=== PATIENT | male | born 1955 | race Two or more races ===

== ENCOUNTER 2023-03-01 09:16 | Outpatient (AMB) | payer MEDICARE, OTHER, SELFPAY ==
[2023-03-01 09:20] VITALS: BP 110/70; PULSE 71; RESP 12; TEMP 36.4; O2SAT 97; BMI 28.6
--- NOTE | 2023-03-01 09:20 | MHC.PC.OV ---
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 Accompanied by: Self / Same As Patient Allergies No Known Allergies Allergy (Verified 03/01/23 09:53) Medication List - Last Reconciled 03/01/23 by Chandan Vasquez CNP No Known Home Meds Tobacco use date assessed: 03/01/23 Fall risk assessment: No Falls in past year Last assessed Fall Risk: 03/01/23 Dental Screening Dental Screen Date: 03/01/23 Did you have a dental visit in the last 12 months?: Yes Did you have a dental problem in the last 6 months where you did not have access to dental care?: No Was dental information given to patient?: Patient has dentist HPI HPI Comments History of Present Illness Details 67-year-old male presents to [facility] care. He notes that he was last evaluated by his former PCP and had routine blood work done 4 years ago. No significant PMH. Not on prescription medication. No acute symptoms at this time. He notes that he has never received the shingix or PNA vaccines and does not intent to be vaccinated. He states that his last colonoscopy was 4 years ago by his former PCP: normal [facility] Medical History (Updated 03/01/23 @ 10:13 by Chandan Vasquez CNP) History of torn meniscus of left knee Surgical History (Updated 03/01/23 @ 09:34 by Malathi Bird MA) H/O lateral meniscus repair of left knee History of appendectomy Family History (Updated 03/01/23 @ 09:31 by Malathi Bird MA) Mother Breast cancer Social History Housing: Other (RV) Patient Tobacco Use Status: Never used Tobacco e-Cigarette/Vaping Use: Never Used service: No Current occupational status: retired Cognitive needs: No Hearing needs: No Vision needs: No Questionnaire PHQ-9 Over the last 2 weeks, how often have you been bothered by any of the following problems? 1. Little interest or pleasure in doing things: not at all 2. Feeling down, depressed, or hopeless: not at all 3. Trouble falling or staying asleep, or sleeping too much: not at all 4. Feeling tired or having little energy: not at all 5. Poor appetite or overeating: not at all 6. Feeling bad about yourself - or that you are a failure or have let yourself or your family down: not at all 7. Trouble concentrating on things, such as reading the newspaper or watching television: not at all 8. Moving or speaking so slowly that other people could have noticed. Or the opposite - being so fidgety or restless that you have been moving around a lot more than usual: not at all 9. Thoughts that you would be better off or of hurting yourself in some way: not at all Total score: 0 Depression Screening Interpretation: Negative Depression Screening Done: Yes Source: Developed by Drs. Warren Sullivan, Linda Hong, Wilman Rosales and colleagues, with an educational bautista from [employer]. Thrive Questionnaire Date Thrive assessed: 03/01/23 I am a: Patient What is your living situation today?: I have a steady place to live Within the past 12 months, did the food you bought not last and you didn't have the money to get more?: Never true Within the past 12 months, did you worry whether your food would run out before you got money to buy more?: Never true Do you have trouble paying for medicines?: No Do you have trouble getting transportation to medical appointments?: No Do you have trouble paying your heating and electricity bill?: No Do you have trouble taking care of your child, family member or friend?: No Do you have trouble with day-to-day activities such as bathing, preparing meals, shopping, managing finances, etc.?: No Are you currently unemployed and looking for a job?: No Are you interested in more education?: No Please select the resources that you would like help with: None Currently or been in a relationship where the following occur: no concerns reported AUDIT C Alcohol Use Questionnaire (AUDIT-C) 1. How often do you have a drink containing alcohol?: Monthly or less 2. How many drinks containing alcohol do you have on a typical day when you are drinking?: 1 or 2 3. How often do you have six or more drinks on one occasion?: Never Total Score: 1 CHRISTIAN-7 AMB Questionnaire CHRISTIAN-7 Date CHRISTIAN - 7 assessed: 03/01/23 Feeling nervous, anxious, or on edge: 0 = Not at all Not being able to stop or control worryin = Not at all Worrying too much about different things: 0 = Not at all Trouble relaxin = Not at all Being so restless that it is hard to sit still: 1 = Several days Becoming easily annoyed or irritable: 0 = Not at all Feeling afraid as if something awful might happen: 0 = Not at all Total CHRISTIAN-7 score (0-4 normal; 5-9 mild; 10-14 moderate; 15-21 severe): 1 Source: Developed by Drs. Warren Sullivan, Linda Hong, Wilman Rosales and colleagues, with an educational bautista from [employer]. Review of Systems Const Details: Denies chills, Denies fatigue, Denies fever(s), Denies headache(s) and Denies weakness HEENT Denies change in vision, Denies dizziness, Denies headache(s), Denies hearing loss, Denies nasal congestion, Denies sinus pain, Denies sinus pressure and Denies sore throat Card Denies chest pain, Denies lightheadedness, Denies dyspnea and Denies other (palpitations) Resp Denies cough, Denies dyspnea and Denies wheezing GI Denies abdominal pain, Denies melena, Denies hematochezia, Denies change in bowel habits, Denies dyspepsia and Denies nausea Denies hematuria and Denies dysuria Musc Denies abnormal gait, Denies myalgias, Denies arthralgias, Denies numbness and Denies tingling Skin/Breast Denies rash, Denies unusual bruising and Denies wounds Neuro Denies abnormal gait, Denies dizziness, Denies headache(s), Denies memory loss, Denies numbness, Denies Sensory deficit (Neuro), Denies tingling and Denies weakness Psych Denies anxiety, Denies depression and Denies memory loss Endo Denies cold intolerance, Denies fatigue, Denies heat intolerance, Denies polydipsia and Denies polyuria Rajeev/Lymph Denies easy bleeding and Denies easy bruising Aller/Immun Denies wheezing Physical exam (Primary Care) Vital Signs: Last Vital Signs Temp 97.6 F 03/01/23 09:20 Pulse 71 03/01/23 09:20 Resp 12 03/01/23 09:20 BP 110/70 03/01/23 09:20 Pulse Ox 97 03/01/23 09:20 Oxygen Delivery Method Room Air 03/01/23 09:20 BMI result Body Mass Index 28.6 Tobacco/Smoking Status: Tobacco use Status Tobacco use date assessed 03/01/23 03/01/23 09:35 Patient Tobacco Use Status Never used Tobacco 03/01/23 09:35 e-Cigarette/Vaping Use Never Used 03/01/23 09:35 PHQ-9: PHQ-9 Score PHQ-9: Total score 0 03/01/23 09:35 Depression Screening Interpretation: Negative Thrive Assessment: Date of Thrive Assessment Date Thrive assessed 03/01/23 03/01/23 09:35 Currently or been in a relationship where the following occur: no concerns reported Const Other: General: no acute distress, well developed, alert and awake Nutritional Appearance: well nourished Orientation/consciousness: patient oriented x3 HENMT Head: Yes normocephalic and Yes atraumatic Ears: hearing grossly normal bilaterally and TM's normal bilaterally General nose exam: Normal external nose present and Normal nares present Mouth: Normal oral and palatal mucosa present and moist mucous membranes Teeth and gingiva: dentition normal Throat: Yes oropharynx normal Eyes Pupils: Equal, round and reactive pupils present and Pupil accommodation reflex normal EOM: EOMs intact bilaterally Neck Neck: Yes normal visual inspection, Yes no lymphadenopathy and Yes trachea midline Thyroid: Thyroid normal Carotids: no bruits Lymphatic: no lymphadenopathy noted Chest Chest palpation & inspection: normal inspection of the chest Resp Effort & Inspection: normal respiratory effort Auscultation: clear to auscultation bilaterally Cardio Rate: regular rate Rhythm: regular rhythm Heart sounds: S1 normal heart sound present, S2 normal heart sound present, no gallops, no murmurs and no rubs Bruits: no abdominal aortic bruits and no carotid bruits GI Palpation (GI): No Abdominal aortic bruit present, Soft to palpation, nontender, No hepatosplenomegaly present and No Rebound tenderness present Auscultation: normal bowel sounds General: Yes no CVA tenderness Back/Spine/Pelvis Back: no CVA tenderness Cervical Spine: cervical ROM normal and No Cervical spine tenderness Thoracic/Lumbar Spine: thoraco-lumbar ROM normal, No pain with thoraco-lumbar ROM, No thoracic spinal tenderness and No lumbar spinal tenderness Skin General: warm and dry. Normal skin color. Normal skin turgor Lesions: no lesions Rashes: no rashes Trauma: no lacerations or abrasions Wounds: no wounds Nails: normal Neuro General: patient oriented x3, gait normal and CN's II-XI intact bilaterally Cranial nerves: Yes Equal, round and reactive pupils present Cognition (Neuro): normal cognition Gait exam (Neuro): Normal gait present Motor exam (neuro): 5/5 motor strength present throughout Sensory Exam: No Sensory deficit (Neuro) Deep tendon reflexes (DTR's): Right patellar reflex intensity grade: 2+ and Left patellar reflex intensity grade: 2+ Extrem General: Yes normal to inspection, No edema and No calf tenderness Psych Appearance: grossly normal Affect: normal affect Attitude: cooperative Thought process: Normal thought process present Assessment and Plan Assessment & Plan (1) Normal physical examination, routine: Code(s): Z00.00 - Encounter for general adult medical examination without abnormal findings Plan: No significant physical restrictions or limitations noted Routine labs ordered to complement the physical exam Advised to sign consent to obtain record from his former PCP Encouraged to get fasting blood work done before his next visit Schedule a telehealth visit for labs review Return with symptoms or concerns Verbalized understanding and agreed with treatment plan. (2) Vaccine counseling: Code(s): Z71.85 - Encounter for immunization safety counseling Plan: He notes that he has never received the shingix or PNA vaccines and does not intent to be vaccinated. Instructed on the importance of the Shingrix and pneumonia vaccines and encouraged to get vaccinated. (3) Laboratory tests ordered as part of a complete physical exam (CPE): Code(s): Z00.00 - Encounter for general adult medical examination without abnormal findings Plan: Fasting labs ordered as part of a complete physical exam. Advised to fast for at least 10 hours before getting labs drawn. May drink water Verbalized understanding and agreed with treatment plan. Orders: Orders Complete Blood Count Auto Diff Today Z00.00 - Encounter for general adult medical examination without abnormal findings TSH reflex Free T4 Today Z00.00 - Encounter for general adult medical examination without abnormal findings UA CC w/rflx Micro + Cult Today Z00.00 - Encounter for general adult medical examination without abnormal findings PSA, Ultra Sensitive Today Z00.00 - Encounter for general adult medical examination without abnormal findings Comprehensive [place]. Panel Fast Today Z00.00 - Encounter for general adult medical examination without abnormal findings Lipid Panel Today Z00.00 - Encounter for general adult medical examination without abnormal findings Coding Level of Care Code New Pt Prev Care >65yr (41648) Diagnoses Normal physical examination, routine Z00.00 Vaccine counseling Z71.85 Laboratory tests ordered as part of a complete physical exam (CPE) Z00.00
== END 2023-03-01 10:14 | disposition home or self-care (01) ==
PROVIDERS: PCP Nurse Practitioner Family; Visit Provider Nurse Practitioner Family
DX: Z00.00 Encounter for general adult medical examination without abnormal findings (principal); Z71.85 Encounter for immunization safety counseling
CPT/HCPCS: 99387

== ENCOUNTER 2023-03-07 09:06 | Outpatient (REF) | payer MEDICARE, OTHER, SELFPAY ==
[2023-03-07 11:13] LABS: MANUAL DIFF FLAG NO
[2023-03-07 11:21] LABS: Appearance Urine Clear; Color Urine Yellow; Glucose Urine UA Negative (Negative); Leukocyte Esterase Urine Negative (Negative); Nitrite Urine Negative (Negative); PH 6.5 (5.0-9.0); Specific Gravity - Urine <= 1.005 (1.005-1.025); UMIC TRIGGER UACC YES; Urine Blood Negative (Negative); Urine Ketones Negative (Negative); Urine Protein 30 (1+) mg/dL (Neg-Trace)
[2023-03-07 11:34] LABS: Bacteria Urine None Seen (None Seen); Hyaline Casts Urine 0-2 /LPF (0-2); RBC Urine 0-2 /HPF (0-2); Squamous Epithelial Cell Urine 0-2 /HPF (0-2); WBC Urine 0-5 /HPF (0-5)
[2023-03-07 11:40] LABS: Basophils Percent Auto 0.6 % (0-2); Eosinophils Absolute Auto 0.1 X10*3/uL (0.0-0.4); Eosinophils Percent Auto 1.1 % (0-4); Hematocrit 42.6 % (42.0-52.0); Imm Gran Abs Auto 0.02 X10*3/uL (0.00-0.03); Imm Gran Pct Auto 0.3 % (0.0-0.4); Lymphocytes Absolute Auto 2.1 X10*3/uL (1.2-4.9); Lymphocytes Percent Auto 28.9 % (20-40); Mean Corpuscular HGB Conc 32.9 g/dl (31.0-36.0); Mean Corpuscular Hemoglobin 29.6 pg (27.0-33.0); Mean Corpuscular Volume 90.1 fL (80.0-98.0); Mean Platelet Volume 9.7 fL (9.4-12.4); Monocytes Absolute Auto 0.6 X10*3/uL (0.1-1.2); Monocytes Percent Auto 7.8 % (2-11); Neutrophils Absolute Auto 4.4 x10*3/uL (2.0-8.3); Neutrophils Percent Auto 61.3 % (45-73); Platelet Count 238 X10*3/uL (160-400); Red Blood Count 4.73 X10*6/uL (4.60-5.80); Red Cell Distribution Width 12.6 % (11.0-16.0); White Blood Count 7.2 X10*3/uL (4.8-10.8)
[2023-03-07 13:10] LABS: Alanine Aminotransferase 15 U/L (0-40); Albumin Level 4.1 g/dL (3.5-5.0); Alkaline Phosphatase 50 U/L (39-117); Anion Gap 17 (12-20); Aspartate Amino Transferase 19 U/L (5-37); Bilirubin Total 0.5 mg/dL (0.0-1.0); Blood Urea Nitrogen 13 mg/dL (9-16); Calcium 9.3 mg/dL (8.4-10.2); Carbon Dioxide 22 mmol/L (22-29); Chloride 105 mmol/L (96-108); Cholesterol 207 mg/dL (<200); Estimated Glomerular Filt Rate > 60; Glucose Fasting 91 mg/dL (60-99); HDL Cholesterol 49 mg/dL (>40); LDL Cholesterol Calculated 139 mg/dL (<100); Potassium 4.5 mmol/L (3.3-5.1); Sodium 139 mmol/L (135-145); TSH reflex Free T4 1.13 uIU/mL (0.32-4.0); Total Protein 7.1 g/dL (6.5-8.0); Triglycerides 98 mg/dL (<150)
[2023-03-11 21:37] LABS: PSA, Ultra Sensitive 0.38 ng/mL
== END 2023-03-07 09:07 | disposition home or self-care (01) ==
LOC: HO.WFDLDS 09:06
PROVIDERS: Visit Provider Nurse Practitioner Family
DX: Z00.00 Encounter for general adult medical examination without abnormal findings (principal); Z12.5 Encounter for screening for malignant neoplasm of prostate
CPT/HCPCS: 36415; 80053; 80061; 81001; 84153; 84443; 85025

== ENCOUNTER 2023-03-16 17:07 | Outpatient (AMB) | payer MEDICARE, OTHER, SELFPAY ==
--- NOTE | 2023-03-16 15:21 | A.OFFPC_ITS ---
Intake Visit Reasons: labs review [employer] Required: No Allergies No Known Allergies Allergy (Verified 03/16/23 15:23) Tobacco use date assessed: 03/01/23 HPI HPI Comments History of Present Illness Details This is a telephonic telehealth visit for review of recent blood work. Patient established care 2 weeks ago and had a complete physical exam and routine labs ordered. He offers no complaints and denies acute symptoms. [facility] Medical History (Updated 03/16/23 @ 15:34 by Chandan Vasquez CNP) History of torn meniscus of left knee Surgical History (Updated 03/01/23 @ 09:34 by Malathi Bird MA) H/O lateral meniscus repair of left knee History of appendectomy Family History (Updated 03/01/23 @ 09:31 by Malathi Bird MA) Mother Breast cancer Social History Housing: Other (RV) Patient Tobacco Use Status: Never used Tobacco e-Cigarette/Vaping Use: Never Used service: No Current occupational status: retired Cognitive needs: No Hearing needs: No Vision needs: No Questionnaire Thrive Questionnaire Date Thrive assessed: 03/01/23 CHRISTIAN-7 AMB Questionnaire CHRISTIAN-7 Date CHRISTIAN - 7 assessed: 03/01/23 Source: Developed by Drs. Warren Sullivan, Linda Hong, Wilman Rosales and colleagues, with an educational bautista from [employer]. Review of Systems Const Details: Const Denies chills, Denies fatigue, Denies fever(s), Denies headache(s) and Denies weakness ENT Denies dizziness and Denies headache(s) Card Denies chest pain, Denies lightheadedness, Denies dyspnea and Denies other (Palpitations) Resp Denies cough, Denies dyspnea, Denies wheezing and Denies other ( shortness of breath) GI Denies abdominal pain, Denies melena, Denies hematochezia, Denies change in bowel habits, Denies dyspepsia and Denies nausea Denies hematuria and Denies dysuria Musc Denies abnormal gait, Denies myalgias, Denies arthralgias, Denies numbness and Denies tingling Skin/Breast Denies rash, Denies unusual bruising and Denies wounds Neuro Denies abnormal gait, Denies dizziness, Denies headache(s), Denies memory loss, Denies numbness, Denies Sensory deficit (Neuro), Denies tingling and Denies weakness Psych Denies anxiety, Denies depression, Denies memory loss Endo Denies cold intolerance, Denies fatigue, Denies heat intolerance, Denies polydipsia and Denies polyuria Aller/Immun Denies wheezing Physical exam (Primary Care) Tobacco/Smoking Status: Tobacco use Status Tobacco use date assessed 03/01/23 03/16/23 15:22 Patient Tobacco Use Status Never used Tobacco 03/16/23 15:22 e-Cigarette/Vaping Use Never Used 03/16/23 15:22 Thrive Assessment: Date of Thrive Assessment Date Thrive assessed 03/01/23 03/16/23 15:22 Const Other: Telemedicine. No physical exam Telehealth Telehealth Location of provider rendering services: practice address Location of patient: address on file Patient Identification confirmed using: Name, : Yes Telehealth method: voice only Patient verbally consented to treatment: Yes Patient verbally consented to billing insurance company: Yes Patient informed of any privacy concerns related to visit: Yes Assessment and Plan Assessment & Plan (1) Hypercholesterolemia: Code(s): E78.00 - Pure hypercholesterolemia, unspecified Plan: Recent urinalysis and lab results were unremarkable except for slightly elevated total cholesterol and LDL levels, 207 and 139 respectively His 10 year risk of ASCVD is 11% No significant past medical history Advised to limit foods high in saturated fat and avoid foods high in trans fat Routine exercise encouraged Advised to schedule his next physical exam for next February. Fast for 10-12 smita rs and get routine blood work done to 3 days before his next visit Return sooner with symptoms or concerns Verbalized understanding and agreed with treatment plan. Orders: Orders Complete Blood Count Auto Diff Today Z00.00 - Encounter for general adult medical examination without abnormal findings Comprehensive [place]. Panel Fast Today Z00.00 - Encounter for general adult medical examination without abnormal findings Lipid Panel Today Z00.00 - Encounter for general adult medical examination without abnormal findings TSH reflex Free T4 Today Z00.00 - Encounter for general adult medical examination without abnormal findings Coding Level of Care Code Tele Est Pt Level 2 (42078) Diagnoses Hypercholesterolemia E78.00
== END 2023-03-16 17:10 | disposition home or self-care (01) ==
PROVIDERS: PCP Nurse Practitioner Family; Visit Provider Nurse Practitioner Family
DX: E78.00 Pure hypercholesterolemia, unspecified (principal)
CPT/HCPCS: 99442

== ENCOUNTER 2023-03-31 12:56 | Outpatient (AMB) | payer MEDICARE, OTHER, SELFPAY ==
--- NOTE | 2023-03-31 13:02 | A.OFFPC_ITS ---
Vital Signs 03/31/23 13:26 Height 5 ft 9 in Weight 187 lb BMI 27.6 BP 126/60 Blood Pressure Location Rt brachial Position Sitting Respiration 12 Pulse 73 Pulse Source Pulse Oximeter Temp 98.9 F Temp Source Oral Pulse Oximetry (%) 96 Oxygen Delivery Method Room Air Intake Visit Reasons: tick bite Intake Note: Patient presents with a tick bite on the right side of his rib cage area. Patient reports he noticed it there this morning and his attempted to get the tick out, however there was concern of some of the tick remaining on the skin. Mass Spectroscopist Required: No Accompanied by: Self / Same As Patient Allergies No Known Allergies Allergy (Verified 03/31/23 13:28) Tobacco use date assessed: 03/01/23 HPI HPI Comments History of Present Illness Details 67-year-old male presents with complaint s of a tick bite to his right side. He notes that he noticed the tick imbedded in the skin this morning. His attempted to remove the tick but was only able to remove most of the body with some parts remaining still imbedded in his skin. He notes that he did not noticed the tick in his skin before this morning. No acute symptoms at this time. He states that he is traveling in with his to [place] and will return next August. [facility] Medical History (Updated 03/31/23 @ 13:32 by Chandan Vasquez CNP) History of torn meniscus of left knee Surgical History (Updated 03/01/23 @ 09:34 by Malathi Bird MA) H/O lateral meniscus repair of left knee History of appendectomy Family History (Updated 03/01/23 @ 09:31 by Malathi Bird MA) Mother Breast cancer Social History Housing: Other () Patient Tobacco Use Status: Never used Tobacco e-Cigarette/Vaping Use: Never Used service: No Current occupational status: retired Cognitive needs: No Hearing needs: No Vision needs: No Questionnaire Thrive Questionnaire Date Thrive assessed: 03/01/23 CHRISTIAN-7 AMB Questionnaire CHRISTIAN-7 Date CHRISTIAN - 7 assessed: 03/01/23 Source: Developed by Drs. Warren Sullivan, Linda Hong, Wilman Rosales and colleagues, with an educational bautista from [employer]. Review of Systems Const Details: Const Denies chills, Denies fatigue, Denies fever(s), Denies headache(s) and Denies weakness ENT Denies dizziness and Denies headache(s) Card Denies chest pain, Denies lightheadedness, Denies dyspnea and Denies other (Palpitations) Resp Denies cough, Denies dyspnea, Denies wheezing and Denies other ( shortness of breath) GI Denies abdominal pain, Denies melena, Denies hematochezia, Denies change in bowel habits, Denies dyspepsia and Denies nausea Denies hematuria and Denies dysuria Musc Denies abnormal gait, Denies myalgias, Denies arthralgias, Denies numbness and Denies tingling Skin/Breast Reports as per HPI Neuro Denies abnormal gait, Denies dizziness, Denies headache(s), Denies memory loss, Denies numbness, Denies Sensory deficit (Neuro), Denies tingling and Denies weakness Psych Denies anxiety, Denies depression, Denies memory loss Endo Denies cold intolerance, Denies fatigue, Denies heat intolerance, Denies polydipsia and Denies polyuria Aller/Immun Denies wheezing Physical exam (Primary Care) Tobacco/Smoking Status: Tobacco use Status Tobacco use date assessed 03/01/23 03/31/23 13:03 Patient Tobacco Use Status Never used Tobacco 03/31/23 13:03 e-Cigarette/Vaping Use Never Used 03/31/23 13:03 Thrive Assessment: Date of Thrive Assessment Date Thrive assessed 03/01/23 03/31/23 13:03 Const Other: General: no acute distress and well developed Nutritional Appearance: well nourished Orientation/consciousness: patient oriented x3 HENMT Head: Yes normocephalic and Yes atraumatic Eyes General: appearance normal, both eyes and all related structures Pupils: Equal, round and reactive pupils present EOM: EOMs intact bilaterally Resp Effort & Inspection: normal respiratory effort Auscultation: clear to auscultation bilaterally Cardio Rate: regular rate Rhythm: regular rhythm Heart sounds: S1 normal heart sound present, S2 normal heart sound present, no gallops, no murmurs and no rubs GI Palpation (GI): No Abdominal aortic bruit present, Soft to palpation, nontender, No hepatosplenomegaly present and No Rebound tenderness present Auscultation: normal bowel sounds General: Yes no CVA tenderness Back/Spine/Pelvis Back: no CVA tenderness Cervical Spine: cervical ROM normal and No Cervical spine tenderness Thoracic/Lumbar Spine: thoraco-lumbar ROM normal, No pain with thoraco-lumbar ROM, No thoracic spinal tenderness and No lumbar spinal tenderness Extrem General: Yes normal to inspection, No edema and No calf tenderness Skin General: warm and dry. Normal skin color. Normal skin turgor Lesions: Small, red, round, firm area noted to the skin on his right lower ribcage Rashes: no rashes Trauma: no lacerations or abrasions Wounds: no wounds Nails: normal Neuro General: patient oriented x3, gait normal and no focal neuro deficit Cranial nerves: Yes Equal, round and reactive pupils present Cognition (Neuro): normal cognition Gait exam (Neuro): Normal gait present Sensory Exam: No Sensory deficit (Neuro) Psych Appearance: grossly normal Affect: normal affect Attitude: cooperative Thought process: Normal thought process present Assessment and Plan Assessment & Plan (1) Tick bite: Code(s): W57.XXXA - Bitten or stung by nonvenomous insect and other nonvenomous arthropods, initial encounter Qualifiers: Encounter type: initial encounter Plan: Reports noticing a tick that was imbedded to his right side this morning. Most of the tick was removed by his . He notes that he did not noticed the tick on his skin before this morning. He denies acute symptoms. Small, red, round, firm area noted to the skin on his right lower ribcage. Small, tick-like appendage removal with tweezers, no other appendages or body parts noted. No drainage noted. Will treat prophylactically with doxycycline. Doxycycline ordered. Take as prescribed Advised to follow-up for further evaluation if he experiences acute symptoms He verbalized understanding and agreed with treatment plan. Medications: New doxycycline hyclate 200 mg (2 x 100 mg) PO ONCE 2 caps 0RF Coding Level of Care Code Est Pt Level 3 (82455) Diagnoses Tick bite W57.XXXA Encounter type: initial encounter
[2023-03-31 13:26] VITALS: BP 126/60; PULSE 73; RESP 12; TEMP 37.2; O2SAT 96; BMI 27.6
== END 2023-03-31 13:26 | disposition home or self-care (01) ==
PROVIDERS: PCP Nurse Practitioner Family; Visit Provider Nurse Practitioner Family
DX: T63.481A Toxic effect of venom of other arthropod, accidental (unintentional), initial encounter (principal)
CPT/HCPCS: 99213

== ENCOUNTER 2024-02-01 09:32 | Outpatient (REF) | payer MEDICARE, OTHER, SELFPAY ==
[2024-02-01 11:28] LABS: MANUAL DIFF FLAG NO
[2024-02-01 11:34] LABS: Basophils Absolute Auto 0.1 X10*3/uL (0.0-0.2); Basophils Percent Auto 0.7 % (0-2); Eosinophils Absolute Auto 0.1 X10*3/uL (0.0-0.4); Eosinophils Percent Auto 1.5 % (0-4); Hematocrit 41.2 % (42.0-52.0); Hemoglobin 13.4 g/dl (14.0-18.0); Imm Gran Abs Auto 0.01 X10*3/uL (0.00-0.03); Imm Gran Pct Auto 0.1 % (0.0-0.4); Lymphocytes Absolute Auto 2.9 X10*3/uL (1.2-4.9); Mean Corpuscular HGB Conc 32.5 g/dl (31.0-36.0); Mean Corpuscular Volume 92.2 fL (80.0-98.0); Mean Platelet Volume 9.7 fL (9.4-12.4); Monocytes Absolute Auto 0.7 X10*3/uL (0.1-1.2); Monocytes Percent Auto 9.7 % (2-11); Neutrophils Absolute Auto 3.8 x10*3/uL (2.0-8.3); Platelet Count 218 X10*3/uL (160-400); Red Blood Count 4.47 X10*6/uL (4.60-5.80); Red Cell Distribution Width 13.1 % (11.0-16.0); White Blood Count 7.5 X10*3/uL (4.8-10.8)
[2024-02-01 12:10] LABS: Alanine Aminotransferase 21 U/L (0-40); Albumin Level 4.2 g/dL (3.5-5.0); Alkaline Phosphatase 49 U/L (39-117); Anion Gap 13 (12-20); Aspartate Amino Transferase 26 U/L (5-37); Bilirubin Total 0.5 mg/dL (0.0-1.0); Blood Urea Nitrogen 18 mg/dL (9-16); Carbon Dioxide 27 mmol/L (22-29); Chloride 105 mmol/L (96-108); Cholesterol 203 mg/dL (<200); Estimated Glomerular Filt Rate > 60; Glucose Fasting 95 mg/dL (60-99); HDL Cholesterol 55 mg/dL (>40); LDL Cholesterol Calculated 136 mg/dL (<100); Sodium 141 mmol/L (135-145); TSH reflex Free T4 1.03 uIU/mL (0.32-4.0); Total Protein 6.8 g/dL (6.5-8.0); Triglycerides 60 mg/dL (<150)
[2024-02-01 12:37] LABS: Appearance Urine Clear; Color Urine Yellow; Glucose Urine UA Negative (Negative); Leukocyte Esterase Urine Negative (Negative); Nitrite Urine Negative (Negative); PH 6.5 (5.0-9.0); Urine Blood Negative (Negative); Urine Ketones Negative (Negative); Urine Protein Negative (Neg-Trace)
== END 2024-02-01 09:33 | disposition home or self-care (01) ==
LOC: HO.WFDLDS 09:32
PROVIDERS: Visit Provider Nurse Practitioner Family
DX: Z00.00 Encounter for general adult medical examination without abnormal findings (principal)
CPT/HCPCS: 36415; 80053; 80061; 81003; 84443; 85025